=== PATIENT | male | born 1985 | race Caucasian/White ===

== ENCOUNTER 2017-09-27 16:11 | Emergency (ER) | payer MEDICARE, OTHER ==
[~2017-09-27] VITALS: Ht 160 cm; Wt 68.0 kg
[2017-09-27 16:11] VITALS: BP 160/100; PULSE 135; RESP 20; TEMP 98.1; O2SAT 100
[2017-09-27 17:24] VITALS: BP 134/79; PULSE 124; RESP 18; TEMP 99.8; O2SAT 99
[2017-09-27] MEDS ORDERED: SODIUM CHLOR 0.9% 1000 ML INJ 800 ML IV ONE (17:24)
[2017-09-27] MEDS ORDERED: SODIUM CHLOR 0.9% 1000 ML INJ 1,000 ML IV ONE (17:24)
--- NOTE | 2017-09-27 17:29 | PD ---
HPI Chief Complaint: Headache Time Seen by Provider: 17:16 Travel History International Travel<30 days: No Contact w/Intl Traveler<30days: No Traveled to known affect area: No History of Present Illness HPI 31-year-old male here for evaluation of headache, neck pain, and backache. The patient reports that he had a dull headache when he woke up this morning. At around 2:00 PM his headache seemed to have worsened and he experienced some lower back/flank pain that radiated up to his neck. At 5:20 PM at the time of my assessment the patient states he feels improved. He no longer has a headache. He states he did feel nauseous earlier, however is no longer nauseous as well. He reports that 2 weeks ago he went to a primary care physician and points to his neck where he says that there was some swelling and was told that he had an infection and was prescribed antibiotics. He states that the swelling has improved. He reports some increased urinary frequency and dysuria as well as increased thirst. His heart rate is noted to be 135, sinus. He denies any fevers or chills. No cough or upper respiratory symptoms. No sore throat. He works in construction. No drugs, alcohol, tobacco, or IVDU. PFSH Past Medical History Medical History: Denies Significant Hx Tetanus Vaccination: Unknown Influenza Vaccination: No Past Surgical History Surgical History: No Previous Surgery Social History Alcohol Use: No Tobacco Use: No Substance Use: No Allergies-Medications (Allergen,Severity, Reaction): Coded Allergies: No Known Allergies (Verified Allergy, Unknown, 09/27/17) Reported Meds & Prescriptions Reported Meds & Active Scripts Active No Active Prescriptions or Reported Medications Review of Systems Except as stated in HPI: all other systems reviewed are Neg Physical Exam Narrative GENERAL: Well-developed, well-nourished, comfortable, no apparent distress. SKIN: Focused skin assessment warm/dry. No rash. HEAD: Atraumatic. Normocephalic. EYES: Pupils equal and round. No scleral icterus. No injection or drainage. ENT: No nasal bleeding or discharge. Mucous membranes pink and moist. Normal pharynx. Bilateral tympanic memory and external auditory canals are normal. NECK: Trachea midline. No JVD. No nuchal rigidity. CARDIOVASCULAR: Regular rate and rhythm. No murmur appreciated. RESPIRATORY: No accessory muscle use. Clear to auscultation. Breath sounds equal bilaterally. GASTROINTESTINAL: Abdomen soft, non-tender, nondistended. MUSCULOSKELETAL: No obvious deformities. No clubbing. No cyanosis. No edema. No CVA tenderness. NEUROLOGICAL: Awake and alert. No obvious cranial nerve deficits. Motor grossly within normal limits. Normal speech. PSYCHIATRIC: Appropriate mood and affect; insight and judgment normal. Data Data Last Documented VS Vital Signs Date Time Temp Pulse Resp B/P (MAP) Pulse Ox O2 Delivery O2 Flow Rate FiO2 09/27/17 18:29 94 16 134/79 (97) 09/27/17 17:24 99.8 99 Room Air Orders Orders Sepsis Workup Initiated (09/27/17 ) Complete Blood Count With Diff (09/27/17:) Comprehensive Metabolic Panel (09/27/17) Prothrombin Time / Inr (Pt) (09/27/17) Act Partial Throm Time (Ptt) (09/27/17:24) Lactic Acid Sepsis Protocol (09/27/17:24) Urinalysis - C+S If Indicated (09/27/17:24) Influenzae A/B Antigen (09/27/17:24) Blood Culture (09/27/17:24) Blood Glucose (09/27/17:24) Ecg Monitoring (09/27/17:) Iv Access Insert/Monitor (09/27/17:24) Oximetry (09/27/17:24) Sodium Chlor 0.9% 1000 Ml Inj (Ns 1000 M (09/27/17 17:24) Sodium Chlor 0.9% 1000 Ml Inj (Ns 1000 M (09/27/17 17:24) Group A Rapid Strep Screen (09/27/17 17:24) Creatine Kinase (Cpk) (09/27/17:24) Ketorolac Inj (Toradol Inj) (09/27/17 17:30) Metoclopramide Inj (Reglan Inj) (09/27/17 17:30) Strep Culture (Group A) (09/27/17 17:35) Acetaminophen (Tylenol) (09/27/17 18:45) Labs Laboratory Tests Test 09/27/17:35 White Blood Count 11.6 TH/MM3 Red Blood Count 5.31 MIL/MM3 Hemoglobin 15.1 GM/DL Hematocrit 45.0 % Mean Corpuscular Volume 84.8 FL Mean Corpuscular Hemoglobin 28.5 PG Mean Corpuscular Hemoglobin Concent 33.6 % Red Cell Distribution Width 13.2 % Platelet Count 342 TH/MM3 Mean Platelet Volume 8.1 FL Neutrophils (%) (Auto) 78.1 % Lymphocytes (%) (Auto) 16.0 % Monocytes (%) (Auto) 5.4 % Eosinophils (%) (Auto) 0.2 % Basophils (%) (Auto) 0.3 % Neutrophils # (Auto) 9.0 TH/MM3 Lymphocytes # (Auto) 1.9 TH/MM3 Monocytes # (Auto) 0.6 TH/MM3 Eosinophils # (Auto) 0.0 TH/MM3 Basophils # (Auto) 0.0 TH/MM3 CBC Comment DIFF FINAL Differential Comment Prothrombin Time 10.7 SEC Prothromb Time International Ratio 1.0 RATIO Activated Partial Thromboplast Time 26.8 SEC Urine Color LIGHT-YELLOW Urine Turbidity CLEAR Urine pH 6.0 Urine Specific [place] 1.006 Urine Protein NEG mg/dL Urine Glucose (UA) NEG mg/dL Urine Ketones NEG mg/dL Urine Occult Blood NEG Urine Nitrite NEG Urine Bilirubin NEG Urine Urobilinogen LESS THAN 2.0 MG/DL Urine Leukocyte Esterase NEG Urine RBC 1 /hpf Urine WBC LESS THAN 1 /hpf Microscopic Urinalysis Comment CATH-CULT NOT IND Blood Urea Nitrogen 12 MG/DL Creatinine 0.71 MG/DL Random Glucose 114 MG/DL Total Protein 8.8 GM/DL Albumin 4.5 GM/DL Calcium Level 9.0 MG/DL Alkaline Phosphatase 110 U/L Aspartate Amino Transf (AST/SGOT) 16 U/L Alanine Aminotransferase (ALT/SGPT) 39 U/L Total Bilirubin 0.2 MG/DL Sodium Level 137 MEQ/L Potassium Level 3.5 MEQ/L Chloride Level 104 MEQ/L Carbon Dioxide Level 24.0 MEQ/L Anion Gap 9 MEQ/L Estimat Glomerular Filtration Rate 130 ML/MIN Lactic Acid Level 1.6 mmol/L Total Creatine Kinase 160 U/L [facility] Medical Decision Making Medical Screen Exam Complete: Yes Emergency Medical Condition: Yes Differential Diagnosis Dehydration/metabolic abnormality, renal failure, rhabdomyolysis, UTI, pyelonephritis, sepsis, influenza, SAH/meningitis/encephalitis less likely Narrative Course Initial vital signs show heart rate 135, blood pressure 160/100, pulse ox 100% on room air, oral temp of 99.8F. The patient was given 2 L normal saline IV and repeat heart rate is 94. The patient reports that when he initially arrived he was afraid of receiving bad news and believes that this may have increased his heart rate. CBC: WBC 11.6, hemoglobin 15.1, hematocrit 45, platelets 342, neutrophils 78.1%. CMP is unremarkable. Lactic acid is 1.6. UA is not suggestive of UTI. Influenza is negative. Group A strep is negative. Patient was made aware of all findings. Again his heart rate improved with 2 L of IV fluids. He was given a dose of IV Toradol and IV Reglan, and on reassessment the patient reports that he feels 100% improved. His headache resolved before I was able to assess him. He no longer feels nauseous or has lower back pain. He reports recent infection treated with antibiotics by his primary care physician. He has no red flags for low back pain. He has 3 small children present in the room with him. He likely is suffering from an early viral infection and this is causing myalgias. Total CK is 160, and there is no hematuria. There is no nuchal rigidity on exam. I do not believe he has meningitis or encephalitis. At this point I believe the patient is stable for discharge home with further workup as an outpatient with his primary care physician this week. He was informed on when to return to the emergency department. He verbalizes understanding and agreement with plan. Diagnosis Primary Impression: Fever Qualified Codes: R50.9 - Fever, unspecified Additional Impressions: Headache Qualified Codes: R51 - Headache Low back pain Qualified Codes: M54.5 - Low back pain Referrals: Primary Care Physician 3 days Additional Instructions: Follow-up with your primary care physician this week. Stay hydrated with plenty of fluids. Keep fever control by taking Tylenol every 6 hours. Return to the emergency department for worsening symptoms or any other concerns. Scripts No Active Prescriptions or Reported Meds Disposition: 01 DISCHARGE HOME Condition: Stable Desean Matthews MD Sep 27, 2017 17:29
[2017-09-27] MEDS ORDERED: KETOROLAC TROMETHAMINE 30 MG/ML (IVP) VIAL IV PUSH ONE (17:30)
[2017-09-27] MEDS ORDERED: METOCLOPRAMIDE HCL 10 MG/2 ML VIAL IV PUSH ONE (17:30)
[2017-09-27 18:01] LABS: BASOPHIL % 0.3 % (0.0-2.0); EOSINOPHIL % 0.2 % (0.0-4.0); HEMO FLAGS DIFF FINAL; LYMPHOCYTE # 1.9 TH/MM3 (1.0-4.8); MEAN CELL VOLUME 84.8 FL (80.0-100.0); MEAN CORPUSCULAR HEMOGLOBIN 28.5 PG (27.0-34.0); MEAN CORPUSCULAR HGB CONC 33.6 % (32.0-36.0); MONO % 5.4 % (0.0-8.0); NEUT % 78.1 % (16.0-70.0); PLATELET COUNT 342 TH/MM3 (150-450); RED BLOOD COUNT 5.31 MIL/MM3 (4.50-5.90); RED CELL DISTRIBUTION WIDTH 13.2 % (11.6-17.2); WHITE BLOOD COUNT 11.6 TH/MM3 (4.0-11.0)
[2017-09-27 18:02] LABS: BLOOD, URINE NEG (NEG); GLUCOSE,URINE NEG (NEG); KETONE, URINE NEG (NEG); NITRITE,URINE NEG (NEG); URINE COLOR LIGHT-YELLOW (YELLW/STRAW)
[2017-09-27 18:03] LABS: COMMENT (UR) CATH-CULT NOT IND; CULTURE IF INDICATED CATH CULTURE NOT IND
[2017-09-27 18:17] LABS: APTT (PATIENT) 26.8 SEC (24.3-30.1); PROTHROMBIN TIME - PATIENT 10.7 SEC (9.8-11.6)
[2017-09-27 18:21] LABS: ALT (GPT) 39 U/L (12-78); ANION GAP 9 MEQ/L (5-15); AST (GOT) 16 U/L (15-37); BLOOD UREA NITROGEN 12 MG/DL (7-18); CHLORIDE 104 MEQ/L (98-107); GLOMERULAR FILTRATION RATE 130 ML/MIN (>89); POTASSIUM 3.5 MEQ/L (3.5-5.1); SODIUM (NA) 137 MEQ/L (136-145)
[2017-09-27 18:24] LABS: ALKALINE PHOSPHATASE 110 U/L (45-117); CREATINE KINASE 160 U/L (39-308); TOTAL BILIRUBIN ADULT 0.2 MG/DL (0.2-1.0)
[2017-09-27 18:29] VITALS: BP 134/79; PULSE 94; RESP 16
[2017-09-27] MEDS ORDERED: ACETAMINOPHEN 325 MG TAB PO ONE (18:45)
== END 2017-09-27 19:29 | disposition home or self-care (01) ==
LOC: NEPD 16:11
DX: R50.9 Fever, unspecified (principal); R51 Headache; M54.5 Low back pain
CPT/HCPCS: 80053; 81001; 82550; 83605; 85025; 85610; 85730; 87040; 87081; 87804; 87880; 96361; 96374; 96375; 99284; J1885; J2765; J7030